=== PATIENT | male | born 1975 | race Two or more races ===

== ENCOUNTER 2016-05-26 01:12 | Emergency (ER) | payer SELFPAY ==
[2016-05-26 01:27] VITALS: TEMP 98.5; BMI 28.2
[2016-05-26] MEDS ORDERED: NS 1,000 ML IV ONE (02:02)
[2016-05-26] MEDS ORDERED: ONDANSETRON HCL 4 MG/2 ML VIAL IV ONE (02:02)
[2016-05-26] MEDS ORDERED: HYDROmorphone 1 MG INJECTION IV ONE (02:02)
--- NOTE | 2016-05-26 02:05 | EDPRACDOC ---
- General Information Chief Complaint: Abdominal Pain Stated Complaint: ABD PAIN, DIARRHEA Time Seen by Provider: 05/26/16 01:45 Information Source: Patient Mode Of Arrival: Car Home Medications: Home Medications Ciprofloxacin HCl [Cipro] 500 mg PO BID #20 tab 05/26/16 Ondansetron [Zofran Odt] 4 mg PO Q6H PRN #20 tab.rapdis 05/26/16 Oxycodone HCl/Acetaminophen [Percocet 5-325 mg Tablet] 1 each PO Q4 #20 tablet 05/26/16 Allergies/Adverse Reactions: Allergies Allergy/AdvReac Type Severity Reaction Status Date / Time No Known Allergies Allergy Verified 05/26/16 01:27 - History of Present Illness Onset: SUNDAY HPI: PATIENT PRESENTS C/O ABDOMINAL PAIN LOWER ABD SINCE SUN. NO FEVER. NO N/V. SEVERE DIARRHEA Pain Location: Reports: Diffuse Pain Context: Reports: Spontaneous Pain Severity: Mild Pain Quality: Reports: Aching Pain Radiation: Reports: No Radiation Adult Abdominal History: Denies: Abdominal Surgery Modifying Factors: improves with: Nothing Associated Signs & Symptoms: Reports: Nausea, Diarrhea Oral Intake: Normal Urinary Output: Normal ED Past Medical History - History Reviewed Yes Nurses notes reviewed and agree except as marked Travel Outside of [place] in the Last 3 Months?: No - Patient Medical History Psychological History: Denies: Depression Surgical History: Reports: No Significant History - Social Medical History ETOH: None Substance Abuse: None Lives With: Family Lives In: Home EDM Review of Systems - Review of Systems ROS Negative Except as Marked: Yes All systems reviewed and were negative except as marked Constitutional: No Symptoms Reported. negative: Fever, Chills, Weakness, Fatigue, Loss of Appetite Eyes: No Symptoms Reported. negative: Redness, Blurred Vision, Double Vision, Discharge, Pain, Light Sensitive, Photophobia Ears: No Symptoms Reported. negative: Pain, Hearing Loss, Drainage, Ear Pulling Throat: No Symptoms Reported. negative: Pain, Swelling Nose: No Symptoms Reported. negative: Congestion, Bleeding, Discharge, Injection, Swelling, Deformity, Ecchymosis, Tender, Abrasion, Laceration Mouth: No Symptoms Reported. negative: Pain, Drooling Respiratory: No Symptoms Reported. negative: Cough, Brassy Cough, Barky Cough, Shortness of Breath, Wheezing, Hemoptysis Cardiovascular: No Symptoms Reported. negative: Chest Pain, Palpitations, Syncope, Edema, Orthopnea, PND, Skin Mottling, Cyanosis Gastrointestinal: Diarrhea, Pain. negative: Constipation, Formula Intolerance, Melena, Nausea, Vomiting Genitourinary: No Symptoms Reported. negative: Dysuria, Hematuria, Frequency, Discharge, Bleeding, Testicular Pain, Neurological: No Symptoms Reported. negative: Headache, Dizziness, Seizure, Numbness, Weakness, Speech Difficulty, Gait Difficulty Musculoskeletal: No Symptoms Reported. negative: Neck, Chestwall, Ribs, Back, Shoulder, Arm, Elbow, Forearm, Wrist, Hand, Pelvis, Hip, Femur, Knee, Leg, Ankle , Foot Integumentary: No Symptoms Reported. negative: Itching, Rash, Bruising, Wound Allergic/Immunologic: No Symptoms Reported. negative: Hives, Itching Hematologic: No Symptoms Reported. negative: Lymphadenopathy, Easy Bruising, Easy Bleeding Endocrine: No Symptoms Reported. negative: Weight Gain, Weight Loss Psychiatric: No Symptoms Reported. negative: Anxiety, Depression, Hallucinations, Insomnia, Suicidal - Physical Exam Constitutional: Alert (Awake), Distress (MILD) Oriented to: Time, Person, Place Last recorded Vital Signs: Last Vital Signs Temp 98.5 F 05/26/16 01:24 Pulse 79 05/26/16 01:24 Resp 20 05/26/16 01:24 BP 138/91 05/26/16 01:24 Pulse Ox 99 05/26/16 01:24 Oxygen Pulse Oxygen Saturation 99 O2 Device Room Air Oxygen Flow Rate Fraction of Inspired Oxygen ( FIO2) - HEENT Head: Normal ( normocephalic) Eye Exam: Normal (PERRL, EOMI, Sclera white) Oropharynx: Normal (Pharynx:Moist without exudate,Gums-no swelling) Tympanic Membrane: Normal ENT EAC: Normal TMJ: Normal Nose: No Symptoms Reported (septum midline) Neck: Normal (FROM, trachea at midline) - Respiratory/Cardiovascular Respiratory: Normal - CTA (BBS clear to auscultation without adventitious sounds ) Cardiovascular: Normal (RRR without murmur, gallop or rub) - GI Auscultation: Normal (NABS) Palpation: Other (MILD CREPITANCE) Tenderness: Non tender Glover's Sign: Negative - Musculoskeletal Back: Normal (Non-Tender) Extremities: Normal (Normal tone, Pulses 2+ No cyanosis or edema, FROM) - Integumentary Skin: Normal, Warm, Dry Lymphatics: Normal (no adenopathy) - Neurologic Memory Impaired: Normal Motor Function: Normal (Normal tone, Pulses 2+ No cyanosis or edema, FROM) Cranial Nerve: Normal (CN II-X11 intact sensation, strength 5/5) Cerebellar: Normal Mood Description: Normal Perception: Normal - Results 05/26/16 02:15 05/26/16 02:15 WBC 7.5 xk/uL (3.8-10.8) 05/26/16 02:15 RBC 4.89 xM/uL (4.70-6.10) 05/26/16 02:15 Hgb 14.8 g/dL (14.0-18.0) 05/26/16 02:15 Hct 43.9 % (42-52) 05/26/16 02:15 MCV 90 fL (80-94) 05/26/16 02:15 MCH 30.2 pg (27-32) 05/26/16 02:15 MCHC 33.6 g/dl (33-36) 05/26/16 02:15 RDW 13.0 % (11.5-14.5) 05/26/16 02:15 Plt Count 299 xk/uL (130-400) 05/26/16 02:15 MPV 8.1 fL (7.4-10.4) 05/26/16 02:15 Neut % (Auto) 57.1 % (45-76) 05/26/16 02:15 Lymph % (Auto) 28.4 % (17-44) 05/26/16 02:15 Bates % (Auto) 7.9 % (3-10) 05/26/16 02:15 Eos % (Auto) 4.0 % (0-5) 05/26/16 02:15 Baso % (Auto) 2.6 % (0-2) H 05/26/16 02:15 Absolute Neuts (auto) 4.28 xk/uL (1.7-8.2) 05/26/16 02:15 Absolute Lymphs (auto) 2.10 xk/uL (0.65-4.75) 05/26/16 02:15 Sodium 138 mEq/L (137-146) 05/26/16 02:15 Potassium 3.9 mEq/L (3.5-5.1) 05/26/16 02:15 Chloride 100 mEq/L (98-107) 05/26/16 02:15 Carbon Dioxide 29 mMOL/L (22-33) 05/26/16 02:15 Anion Gap 13 mEq/L (8-16) 05/26/16 02:15 BUN 12 MG/DL (9-20) 05/26/16 02:15 Creatinine 0.90 MG/DL (0.66-1.25) 05/26/16 02:15 Estimated GFR (MDRD) TNP 05/26/16 02:15 Glucose 127 mg/dL (70-99) H 05/26/16 02:15 Calculated Osmolality 268 MOs/Kg (270-290) L 05/26/16 02:15 Calcium 9.0 MG/DL (8.4-10.2) 05/26/16 02:15 Total Bilirubin 0.5 MG/DL (0.2-1.3) 05/26/16 02:15 AST 54 IU/L (17-59) 05/26/16 02:15 ALT 86 IU/L (21-72) H 05/26/16 02:15 Alkaline Phosphatase 92 IU/L (38-126) 05/26/16 02:15 Total Protein 7.3 G/DL (6.3-8.2) 05/26/16 02:15 Albumin 4.0 G/DL (3.5-5.0) 05/26/16 02:15 Lipase 95 U/L (23-300) 05/26/16 02:15 Lab Results 05/26/16 05/26/16 02:15 02:15 WBC 7.5 RBC 4.89 Hgb 14.8 Hct 43.9 MCV 90 MCH 30.2 MCHC 33.6 RDW 13.0 Plt Count 299 MPV 8.1 Neut % (Auto) 57.1 Lymph % (Auto) 28.4 Bates % (Auto) 7.9 Eos % (Auto) 4.0 Baso % (Auto) 2.6 H Absolute Neuts (auto) 4.28 Absolute Lymphs (auto) 2.10 Sodium 138 Potassium 3.9 Chloride 100 Carbon Dioxide 29 Anion Gap 13 BUN 12 Creatinine 0.90 Estimated GFR (MDRD) TNP Glucose 127 H Calculated Osmolality 268 L Calcium 9.0 Total Bilirubin 0.5 AST 54 ALT 86 H Alkaline Phosphatase 92 Total Protein 7.3 Albumin 4.0 Lipase 95 Decision Time to Discharge: 03:34 - Departure Yes I personally saw and evaluated the patient. Disposition: Home Condition: Good Final Diagnosis: Gastroenteritis Instructions: Gastroenteritis (ED) Education/Counseling Given To: Patient Education/Counseling Given Regarding: Diagnosis, Treatment, Prognosis, Follow Up Referrals: None,No Provider [Primary Care Provider] - One Week Alfonzo Benoit MD [Staff Physician] - One Week Prescriptions: New Ciprofloxacin HCl [Cipro] 500 mg PO BID #20 tab Ondansetron [Zofran Odt] 4 mg PO Q6H PRN #20 tab.rapdis PRN Reason: Nausea/Vomiting Oxycodone HCl/Acetaminophen [Percocet 5-325 mg Tablet] 1 each PO Q4 #20 tablet
[2016-05-26 02:46] LABS: AUTOMATED BASOPHIL 2.6 % (0-2); AUTOMATED LYMPH 28.4 % (17-44); AUTOMATED MONOCYTE 7.9 % (3-10); AUTOMATED NEUTROPHIL 57.1 % (45-76); MPV 8.1 fL (7.4-10.4)
[2016-05-26 02:55] LABS: BLOOD UREA NITROGEN 12 MG/DL (9-20); CALCULATED OSMOLALITY 268 MOs/Kg (270-290); CHLORIDE 100 mEq/L (98-107); GLUCOSE 127 mg/dL (70-99); SODIUM LEVEL 138 mEq/L (137-146); TOTAL PROTEIN 7.3 G/DL (6.3-8.2)
[2016-05-26] MEDS ORDERED: Pharmacy Review for Metformin - IV Contrast Given SCH (03:00)
--- NOTE | 2016-05-26 03:32 | DIRPT ---
CLINICAL DATA: Abdominal pain for 4 days, ongoing diarrhea. EXAM: CT ABDOMEN AND PELVIS WITH CONTRAST TECHNIQUE: Multidetector CT imaging of the abdomen and pelvis was performed using the standard protocol following bolus administration of intravenous contrast. CONTRAST: 100 cc Isovue 370 COMPARISON: None available for comparison at time of study interpretation. FINDINGS: LUNG BASES: 4 mm nodule anterior segment RIGHT lower lobe. Calcified granuloma LEFT lower lobe. Included heart size is normal, no pericardial fluid collections. SOLID ORGANS: The liver, spleen, gallbladder, pancreas and adrenal glands are unremarkable. GASTROINTESTINAL TRACT: The stomach, small and large bowel are normal in course and caliber without inflammatory changes. The appendix is not discretely identified, however there are no inflammatory changes in the right lower quadrant. KIDNEYS/ URINARY TRACT: Kidneys are orthotopic, demonstrating symmetric enhancement. No nephrolithiasis, hydronephrosis or solid renal masses. The unopacified ureters are normal in course and caliber. Delayed imaging through the kidneys demonstrates symmetric prompt contrast excretion within the proximal urinary collecting system. Urinary bladder is partially distended and unremarkable. PERITONEUM/RETROPERITONEUM: Aortoiliac vessels are normal in course and caliber. No lymphadenopathy by CT size criteria. Prostate size is normal. No intraperitoneal free fluid nor free air. SOFT TISSUE/OSSEOUS STRUCTURES: Non-suspicious. Moderate to severe L5-S1 disc height loss and endplate spurring, [id number] the remaining lumbar levels. IMPRESSION: No acute intra-abdominal or pelvic process. 4 mm RIGHT lower lobe pulmonary nodule. If the patient is at high risk for bronchogenic carcinoma, follow-up chest CT at 1 year is recommended. If the patient is at low risk, no follow-up is needed. This recommendation follows the consensus statement: Guidelines for Management of Small Pulmonary Nodules Detected on CT Scans: A Statement from the [employer]ischner Society as published in Radiology 2005; 237:395-400. Electronically Signed By: Osiel Nowak M.D. On: 05/26/2016 03:30
[2016-05-26] MEDS ORDERED: CIPROFLOXACIN HCL 500 MG TAB PO ONE (03:36)
[2016-05-26 03:50] VITALS: BP 123/82; PULSE 76
== END 2016-05-26 03:49 | disposition home or self-care (01) ==
LOC: ED 01:12
DX: K52.9 Noninfective gastroenteritis and colitis, unspecified (principal)
CPT/HCPCS: 36415; 74177; 80053; 83630; 83690; 85025; 87045; 87046; 87427; 87449; 96361; 96374; 96375; 99283; J1170; J2405; J3490